=== PATIENT | female | born 1955 | race Two or more races ===

== ENCOUNTER 2022-11-12 07:13 | Outpatient (CLI) | payer OTHER ==
[~2022-11-12 07:13] MED LIST: AMRIX15 MG PO; COZAAR100 MG PO; NAPR500T14 PO
== END 2022-11-12 07:17 | disposition home or self-care (01) ==
LOC: NUCLEAR 07:13
DX: I11.9 Hypertensive heart disease without heart failure (principal); R06.02 Shortness of breath
CPT/HCPCS: 78452; 93017; A9500; J0153